=== PATIENT | male | born 1990 | race Caucasian/White ===

== ENCOUNTER 2016-12-16 19:33 | Emergency (ER) | payer SELFPAY | END 2016-12-16 20:13 | disposition home or self-care (01) | LOC: NAV ERS 19:33 | DX: K12.0 Recurrent oral aphthae (principal) | CPT/HCPCS: 87081; 87430; 99283 ==

== ENCOUNTER 2017-03-24 14:45 | Emergency (ER) | payer SELFPAY ==
[~2017-03-24 14:45] MED LIST: Iopamidol 370 76% 100 ML VIAL ONE
[2017-03-24] MEDS ORDERED: Sodium Chloride 0.9% 1,000 ML ONE (15:12)
[2017-03-24] MEDS ORDERED: Acetaminophen 325 MG TAB ONE (15:12)
[2017-03-24] MEDS ORDERED: Ondansetron HCl/PF 4 MG/2 ML Vial ONE (15:13)
[2017-03-24 15:35] LABS: Bilirubin Small (Negative); Blood, Urine Negative (Negative); Glucose, Urine (Dipstick) Negative (Negative); Leukocyte Negative (Negative); Nitrite Negative (Negative); Protein, Urine (Dipstick) Negative (Neg-Trace); Urobilinogen 0.2 mg/dL (0.2-1.0)
[2017-03-24 15:38] LABS: Clarity SL HAZY (Clear)
[2017-03-24 15:39] LABS: Specific Gravity, Urine 1.028 (1.002-1.036)
[2017-03-24 16:00] LABS: Hemoglobin 15.9 g/dL (14.0-18.0); Lymphocytes 14 % (21-51); MDiff Complete? YES; Mean Corpuscular HGB CONC 32.2 g/dL (32.0-36.0); Mean Corpuscular Hemoglobin 29.3 pg (27.0-31.0); Mean Platelet Volume 8.1 fL (7.4-10.4); Monocytes 1 % (0-10); Neutrophil 85 % (42-75); Platelet Count 180 thou/uL (130-400); RBC Distribution Width 11.5 % (11.5-14.5); Red Blood Cell (RBC) Count 5.41 mill/uL (4.70-6.10); White Blood Cell (WBC) Count 10.4 thou/uL (4.8-10.8)
[2017-03-24 16:03] LABS: ALT (SGPT) 16 U/L (8-55); AST (SGOT) 19 U/L (5-34); Albumin 4.1 g/dL (3.5-5.0); Alkaline Phosphatase 65 U/L (40-150); Anion Gap 18 mmol/L (10-20); BUN (Urea Nitrogen) 16 mg/dL (8.9-20.6); Bilirubin, Total 0.7 mg/dL (0.2-1.2); Calc. Creatinine Clearance 0 mL/min (70-130); Calcium 9.4 mg/dL (7.8-10.44); Carbon Dioxide 21 mmol/L (22-29); Chloride 102 mmol/L (98-107); Estimated GFR-MDRD Greater than 90; Globulin 3.1 g/dL (2.4-3.5); Glucose 70 mg/dL (70-105); Lipase 10 U/L (8-78); Potassium 3.8 mmol/L (3.5-5.1); Protein, Total 7.2 g/dL (6.0-8.3); Sodium 137 mmol/L (136-145)
--- NOTE | 2017-03-24 16:15 | CT ---
CT ABDOMEN AND PELVIS WITH IV CONTRAST: HISTORY: Abdominal pain. FINDINGS: The lung bases are clear. Within the anterior segment right liver lobe, a slightly lobular poorly m arginated low-density mass is 1.1 cm greatest diameter. The spleen, kidneys, adrenal glands, and pa ncreas were within normal limits. Nonenlarged reactive-appearing lymph nodes are present within the mesentery of the right lower quadrant. Urinary bladder is incompletely distended. Lack of oral contrast limits evaluation of the bowel. The appendix is not inflamed. Subtle circumf erential wall thickening and edema involves the right colon. IMPRESSION: 1. Nonspecific low-density 1.1 cm mass within the right liver lobe, as detailed above. Please cons ider nonemergent MRI of liver for better characterization of the abnormality. 2. Subtle inflammatory changes of the right colon, as detailed above. Cause is not evident. [facility]ini [facility]oug[facility] correlation regarding other signs and symptoms of right-sided colitis, such as inflammatory tirso l disease or infectious colitis, is required. POS: [facility]
[2017-03-24] MEDS ORDERED: traMADol HCl 50 MG TAB ONE (16:42)
== END 2017-03-24 16:50 | disposition home or self-care (01) ==
LOC: NAV ERS 14:45
DX: K52.9 Noninfective gastroenteritis and colitis, unspecified (principal)
CPT/HCPCS: 74177; 80053; 81003; 83690; 85025; 96361; 96374; J2405; J7050

== ENCOUNTER 2017-09-04 19:29 | Emergency (ER) | payer BC, SELFPAY ==
[2017-09-04 20:18] LABS: #Basophils 0.1 thou/uL (0.0-0.2); #Eosinphils 0.3 thou/uL (0.0-0.7); #Lymphocytes 3.3 thou/uL (1.20-3.40); #Monocytes 1.3 thou/uL (0.11-0.59); #Neutrophils 5.9 thou/uL (1.40-6.50); %Basophils 0.8 % (0.0-1.0); %Eosinophils 2.4 % (0.0-10.0); %Lymphocytes 30.3 % (21.0-51.0); %Monocytes 11.6 % (0.0-10.0); %Neutrophils 54.9 % (42.0-75.0); Hemoglobin 15.5 g/dL (14.0-18.0); Mean Corpuscular HGB CONC 34.3 g/dL (32.0-36.0); Mean Corpuscular Hemoglobin 31.5 pg (27.0-31.0); Mean Corpuscular Volume 91.6 fl (80.0-94.0); Mean Platelet Volume 7.8 fL (7.4-10.4); Platelet Count 228 thou/uL (130-400); RBC Distribution Width 12.1 % (11.5-14.5); Red Blood Cell (RBC) Count 4.93 mill/uL (4.70-6.10); White Blood Cell (WBC) Count 10.7 thou/uL (4.8-10.8)
[2017-09-04 20:33] LABS: ALT (SGPT) 37 U/L (8-55); AST (SGOT) 32 U/L (5-34); Alkaline Phosphatase 79 U/L (40-150); Anion Gap 14 mmol/L (10-20); BUN (Urea Nitrogen) 22 mg/dL (8.9-20.6); Bilirubin, Total 0.3 mg/dL (0.2-1.2); Calc. Creatinine Clearance 0 mL/min (70-130); Calcium 9.8 mg/dL (7.8-10.44); Carbon Dioxide 25 mmol/L (22-29); Chloride 103 mmol/L (98-107); Estimated GFR-MDRD Greater than 90; Globulin 3.3 g/dL (2.4-3.5); Glucose 73 mg/dL (70-105); Potassium 3.8 mmol/L (3.5-5.1); Protein, Total 7.3 g/dL (6.0-8.3); Sodium 138 mmol/L (136-145)
[2017-09-04 20:50] LABS: Amphetamine Not Detected (NotDetected); Barbiturates Screen Not Detected (NotDetected); Benzodiazepine Screen Not Detected (NotDetected); Cocaine Metabolite Screen Not Detected (NotDetected); Medtox Control Line Valid? VALID (VALID); Methadone Not Detected (NotDetected); Methamphetamine Not Detected (NotDetected); Opiate Screen Not Detected (NotDetected); Oxycodone Screen Not Detected (NotDetected); Phencyclidine (PCP) Not Detected (NotDetected); THC/Cannabinoid Screen Detected (NotDetected); Tricyclic Screen Not Detected (NotDetected)
[2017-09-04 21:15] LABS: Bilirubin Negative (Negative); Blood, Urine Negative (Negative); Clarity Clear (Clear); Glucose, Urine (Dipstick) Negative (Negative); Leukocyte Negative (Negative); Nitrite Negative (Negative); Protein, Urine (Dipstick) Negative (Neg-Trace); Specific Gravity, Urine 1.015 (1.005-1.030); Urobilinogen 0.2 mg/dL (0.2-1.0)
== END 2017-09-04 21:30 | disposition home or self-care (01) ==
LOC: NAV ERS 19:29
DX: T78.1XXA Other adverse food reactions, not elsewhere classified, initial encounter (principal); R42 Dizziness and giddiness; R53.1 Weakness; F32.9 Major depressive disorder, single episode, unspecified; F41.9 Anxiety disorder, unspecified
CPT/HCPCS: 80053; 80306; 81003; 85025; 99284